=== PATIENT | male | born 1935 | race Caucasian/White ===

== ENCOUNTER 2020-07-28 17:50 | Inpatient (IN) | payer MEDICARE, MEDICAID, SELFPAY ==
[~2020-07-28] VITALS: Ht 152.4 cm; Wt 56.8 kg
[2020-07-28 17:55] VITALS: BP_SYST 137
[2020-07-28] MEDS ORDERED: ALBUTEROL SULFATE 0.083% 2.5 MG/3 ML VIAL.NEB INH ONE (18:00)
[2020-07-28] MEDS ORDERED: MAGNESIUM SULFATE 50 ML IV ONE (18:00)
[2020-07-28] MEDS ORDERED: levoFLOXacin 500 MG TABLET PO ONE (18:00)
[2020-07-28 19:24] LABS: BASOPHILS % (AUTO) 0.3 % (0.0-2.0); EOSINOPHILS % (AUTO) 0.3 % (0.0-4.0); HEMATOCRIT 23.5 % (36-54); HEMOGLOBIN 7.8 g/dL (14.0-18.0); LYMPHOCYTES # (AUTO) 0.9 K/uL (1.0-5.5); LYMPHOCYTES % (AUTO) 7.7 % (20.5-51.5); MEAN CORPUSCULAR HEMOGLOBIN 29 pg (27-31); MEAN CORPUSCULAR HGB CONC 33 % (32-36); MEAN CORPUSCULAR VOLUME 86 fL (79.0-98.0); MONOCYTES # (AUTO) 0.8 K/uL (0.0-1.0); MONOCYTES % (AUTO) 6.5 % (1.7-9.3); NEUTROPHILS # (AUTO) 10.2 K/uL (1.8-7.7); NEUTROPHILS % (AUTO) 85.2 % (40.0-70.0); PLATELET COUNT (AUTO) 263 K/uL (130-430); RED BLOOD CELL COUNT(AUTO) 2.72 MIL/uL (4.2-6.2); RED CELL DISTRIBUTION WIDTH 16.3 % (9.0-15.0); WHITE BLOOD COUNT (AUTO) 11.9 K/uL (4.8-10.8)
[2020-07-28 19:27] LABS: PROTHROMBIN TIME 9.8 SECS (9.5-12.5)
[2020-07-28 19:30] LABS: ANION GAP 13 (5-15); CALCIUM 8.4 mg/dL (8.4-11.0); CHLORIDE 102 mmol/L (98-107); CREATININE 2.37 mg/dL (0.55-1.30); GLUCOSE 261 mg/dL (70-99); SODIUM SERUM 137 mmol/L (136-145); UREA NITROGEN, BLOOD 51 mg/dL (8-21)
[2020-07-28 19:31] LABS: ALANINE AMINOTRANSFERASE 37 U/L (12-78); ALBUMIN 3.3 g/dL (3.4-4.8); ASPARTATE AMINOTRANSFERASE 30 U/L (10-37); TOTAL BILIRUBIN 0.3 mg/dL (0.0-1.0)
[2020-07-28] MEDS ORDERED: ASPIRIN 81 MG TAB.CHEW PO ONE (21:00)
[2020-07-28] MEDS ORDERED: HYDR-4038 PO (22:57)
[2020-07-28] MEDS ORDERED: LIP40 PO (22:58)
[2020-07-28] MEDS ORDERED: ATEN-41 PO (23:00)
[2020-07-28] MEDS ORDERED: ASPI-1155 PO (23:01)
[2020-07-28] MEDS ORDERED: AMLO5TAB4 PO (23:01)
[2020-07-29] VITALS (22 sets, daily range): BP systolic 100–139
[2020-07-29] MEDS ORDERED: ASPIRIN 81 MG TAB.CHEW PO ONE (00:45)
[2020-07-29 02:19] LABS: BILIRUBIN,URINE NEGATIVE (NEGATIVE); BLOOD, URINE NEGATIVE (NEGATIVE); CLARITY/URINE CLEAR (CLEAR); COLOR,URINE YELLOW (YELLOW); GLUCOSE,URINE NEGATIVE (NEGATIVE); KETONES,URINE TRACE (NEGATIVE); LEUKOCYTE ESTERASE ,URINE NEGATIVE (NEGATIVE); NITRITE, URINE NEGATIVE (NEGATIVE); PROTEIN URINE 2+ (NEGATIVE); UROBILINOGEN,URINE 0.2 (0.2-1.0)
[2020-07-29 02:22] LABS: BACTERIA,URINE FEW /HPF (None Seen); RBC,URINE 0-3 /HPF (0-3); WBC,URINE 0-3 /HPF (0-3)
[2020-07-29] MEDS ORDERED: ALBUTEROL SULFATE 0.083% 2.5 MG/3 ML VIAL.NEB INH PRN (06:45)
[2020-07-29] MEDS ORDERED: ACETAMINOPHEN 325 MG TABLET PO PRN (06:45)
[2020-07-29] MEDS ORDERED: HYDROcodone/ACETAMIN 5-325 MG TAB (NORCO/ VICODIN) PO PRN (06:45)
[2020-07-29] MEDS ORDERED: HYDROcodone/ACETAMIN 10-325 MG TAB PO PRN (06:45)
[2020-07-29] MEDS ORDERED: LORazepam 2 MG/ML VIAL IVP PRN (06:45)
[2020-07-29] MEDS ORDERED: NALOXONE HCL 0.4 MG/ML AMP (NARCAN) IVP PRN ×2 (06:45)
[2020-07-29] MEDS ORDERED: ONDANSETRON HCL 4 MG/2 ML VIAL IVP PRN (06:45)
[2020-07-29] MEDS: IPRATROPIUM BROM 0.5 MG/2.5 ML VIAL.NEB (ATROVENT) INH SCH ×4 (07:00→23:00)
[2020-07-29] MEDS ORDERED: COMMUNICATION ORDER XX ONE ×2 (07:15→13:00)
[2020-07-29] MEDS ORDERED: HEPARIN SODIUM,PORCINE 5,000 UNITS/ML VIAL IVP ONE ×2 (07:30→07:45)
[2020-07-29] MEDS ORDERED: HEPARIN SODIUM,PORCINE 3000 UNITS/0.6 ML BOLUS IVP PRN (07:30)
[2020-07-29] MEDS ORDERED: HEPARIN SODIUM,PORCINE 2000 UNITS/0.4 ML BOLUS IVP PRN (07:30)
[2020-07-29] MEDS ORDERED: cefTRIAXone 1 GM IVPB PREMIX 50 ML IV SCH (08:00)
[2020-07-29] MEDS ORDERED: amLODIPine BESYLATE 5 MG TABLET PO SCH (09:00)
[2020-07-29] MEDS ORDERED: ATENOLOL 25 MG TABLET(TENORMIN) PO SCH (09:00)
[2020-07-29] MEDS ORDERED: hydrALAZINE HCL 25 MG TABLET PO SCH (09:00)
[2020-07-29] MEDS ORDERED: ASPIRIN 81 MG TAB.CHEW PO SCH (09:00)
[2020-07-29] MEDS: AZITHROMYCIN 500 MG in NS 250 ML IV SCH (09:05)
[2020-07-29] MEDS ORDERED: PROPOFOL DRIP 100 ML IV ONE (09:58)
[2020-07-29] MEDS ORDERED: FUROSEMIDE 40 MG/4 ML VIAL IVP ONE (10:00)
[2020-07-29] MEDS: PROPOFOL DRIP 100 ML IV PRN ×2 (11:39→18:27)
[2020-07-29] MEDS: HEPARIN 25,000 UNITS in 250 ML PREMIX IV PRN (12:49)
[2020-07-29] MEDS ORDERED: ACETAMINOPHEN 325 MG TABLET NG PRN (12:54)
[2020-07-29] MEDS ORDERED: HYDROcodone/ACETAMIN 5-325 MG TAB (NORCO/ VICODIN) NG PRN (13:01)
[2020-07-29] MEDS ORDERED: HYDROcodone/ACETAMIN 10-325 MG TAB NG PRN (13:01)
[2020-07-29] MEDS ORDERED: hydrALAZINE HCL 25 MG TABLET NG SCH (13:01)
[2020-07-29] MEDS: FUROSEMIDE 100 MG in D5W 90 ML IV SCH (13:36)
[2020-07-29] MEDS: PIPERACILLIN/TAZO 2.25G/DEX-IS 50 ML IV SCH ×2 (13:59→18:24)
[2020-07-29] MEDS ORDERED: ETOMIDATE 20 MG/ 10 ML VIAL (AMIDATE) ONE (14:34)
[2020-07-29] MEDS ORDERED: ROCURONIUM BROMIDE 10 MG/ML (ZEMURON) ONE (14:34)
[2020-07-29] MEDS ORDERED: BALSAM PERU/CASTOR OIL 60 GM OINT...G. TP ONE (17:00)
[2020-07-29] MEDS: ATORVASTATIN 20 MG TABLET NG SCH (20:14)
[2020-07-29] MEDS: amLODIPine BESYLATE 5 MG TABLET NG SCH (20:14)
[2020-07-29] MEDS: ATENOLOL 25 MG TABLET(TENORMIN) NG SCH (20:15)
[2020-07-29] MEDS: hydrALAZINE HCL 25 MG TABLET NG SCH (20:30)
[2020-07-30] VITALS (35 sets, daily range): BP systolic 90–128
[2020-07-30] MEDS: PIPERACILLIN/TAZO 2.25G/DEX-IS 50 ML IV SCH ×4 (00:24→17:59)
[2020-07-30] MEDS: PROPOFOL DRIP 100 ML IV PRN ×4 (04:14→20:56)
[2020-07-30] MEDS: HEPARIN 25,000 UNITS in 250 ML PREMIX IV PRN (04:21)
[2020-07-30] MEDS ORDERED: FUROSEMIDE 20 MG/2 ML VIAL ONE ×2 (04:25→04:27)
[2020-07-30] MEDS ORDERED: FUROSEMIDE 40 MG/4 ML VIAL ONE (04:34)
[2020-07-30] MEDS: FUROSEMIDE 100 MG in D5W 90 ML IV SCH ×2 (05:00→17:08)
[2020-07-30] MEDS: hydrALAZINE HCL 25 MG TABLET NG SCH ×3 (06:00→22:00)
[2020-07-30 06:15] LABS: BASOPHILS % (AUTO) 0.1 % (0.0-2.0); EOSINOPHILS % (AUTO) 0.1 % (0.0-4.0); LYMPHOCYTES # (AUTO) 0.9 K/uL (1.0-5.5); LYMPHOCYTES % (AUTO) 6.6 % (20.5-51.5); MEAN CORPUSCULAR HEMOGLOBIN 28 pg (27-31); MEAN CORPUSCULAR HGB CONC 33 % (32-36); MEAN CORPUSCULAR VOLUME 85 fL (79.0-98.0); MONOCYTES # (AUTO) 1.3 K/uL (0.0-1.0); MONOCYTES % (AUTO) 9.8 % (1.7-9.3); NEUTROPHILS # (AUTO) 11.1 K/uL (1.8-7.7); NEUTROPHILS % (AUTO) 83.4 % (40.0-70.0); PLATELET COUNT (AUTO) 198 K/uL (130-430); RED BLOOD CELL COUNT(AUTO) 2.37 MIL/uL (4.2-6.2); RED CELL DISTRIBUTION WIDTH 16.2 % (9.0-15.0); WHITE BLOOD COUNT (AUTO) 13.3 K/uL (4.8-10.8)
[2020-07-30 06:31] LABS: C-REACTIVE PROTEIN QUANT 27.1 mg/dL (0-0.5)
[2020-07-30 06:34] LABS: ALANINE AMINOTRANSFERASE 26 U/L (12-78); ALBUMIN 2.2 g/dL (3.4-4.8); ANION GAP 11 (5-15); ASPARTATE AMINOTRANSFERASE 37 U/L (10-37); CALCIUM 8.1 mg/dL (8.4-11.0); CHLORIDE 105 mmol/L (98-107); CREATININE 2.91 mg/dL (0.55-1.30); GLUCOSE 186 mg/dL (70-99); POTASSIUM 4.3 mmol/L (3.5-5.1); SODIUM SERUM 140 mmol/L (136-145); TOTAL BILIRUBIN 0.3 mg/dL (0.0-1.0); UREA NITROGEN, BLOOD 66 mg/dL (8-21)
[2020-07-30 07:10] LABS: HEMATOCRIT 20.1 % (36-54); HEMOGLOBIN 6.6 g/dL (14.0-18.0)
[2020-07-30] MEDS: IPRATROPIUM BROM 0.5 MG/2.5 ML VIAL.NEB (ATROVENT) INH SCH ×4 (07:16→20:57)
[2020-07-30 08:22] LABS: ERYTHROCYTE SEDIMENTATION RATE 124 MM/HR (0-15)
[2020-07-30] MEDS: ASPIRIN 81 MG TAB.CHEW NG SCH (10:23)
[2020-07-30] MEDS: amLODIPine BESYLATE 5 MG TABLET NG SCH ×2 (10:23→20:12)
[2020-07-30] MEDS: AZITHROMYCIN 500 MG in NS 250 ML IV SCH (10:23)
[2020-07-30] MEDS: ATENOLOL 25 MG TABLET(TENORMIN) NG SCH ×2 (10:23→20:12)
[2020-07-30] MEDS: BALSAM PERU/CASTOR OIL 60 GM OINT...G. TP SCH (10:25)
[2020-07-30] MEDS: ATORVASTATIN 20 MG TABLET NG SCH (20:11)
[2020-07-31] VITALS (36 sets, daily range): BP systolic 98–136
[2020-07-31] MEDS: IPRATROPIUM BROM 0.5 MG/2.5 ML VIAL.NEB (ATROVENT) INH SCH ×7 (00:18→23:42)
[2020-07-31] MEDS: PIPERACILLIN/TAZO 2.25G/DEX-IS 50 ML IV SCH ×4 (00:51→18:55)
[2020-07-31] MEDS: PROPOFOL DRIP 100 ML IV PRN ×4 (00:52→21:11)
[2020-07-31] MEDS: FUROSEMIDE 100 MG in D5W 90 ML IV SCH ×2 (01:17→16:24)
[2020-07-31] MEDS: hydrALAZINE HCL 25 MG TABLET NG SCH ×3 (06:00→21:47)
[2020-07-31 06:52] LABS: BASOPHILS % (AUTO) 0.3 % (0.0-2.0); EOSINOPHILS # (AUTO) 0.2 K/uL (0.0-0.4); EOSINOPHILS % (AUTO) 1.3 % (0.0-4.0); HEMATOCRIT 24.8 % (36-54); HEMOGLOBIN 8.2 g/dL (14.0-18.0); LYMPHOCYTES # (AUTO) 0.9 K/uL (1.0-5.5); LYMPHOCYTES % (AUTO) 7.2 % (20.5-51.5); MEAN CORPUSCULAR HEMOGLOBIN 28 pg (27-31); MEAN CORPUSCULAR HGB CONC 33 % (32-36); MEAN CORPUSCULAR VOLUME 85 fL (79.0-98.0); MONOCYTES # (AUTO) 1.1 K/uL (0.0-1.0); MONOCYTES % (AUTO) 8.7 % (1.7-9.3); NEUTROPHILS # (AUTO) 10.8 K/uL (1.8-7.7); NEUTROPHILS % (AUTO) 82.5 % (40.0-70.0); PLATELET COUNT (AUTO) 207 K/uL (130-430); RED BLOOD CELL COUNT(AUTO) 2.93 MIL/uL (4.2-6.2); RED CELL DISTRIBUTION WIDTH 15.5 % (9.0-15.0)
[2020-07-31 07:44] LABS: ALANINE AMINOTRANSFERASE 36 U/L (12-78); ALBUMIN 2.1 g/dL (3.4-4.8); ANION GAP 13 (5-15); ASPARTATE AMINOTRANSFERASE 44 U/L (10-37); CALCIUM 8.3 mg/dL (8.4-11.0); CHLORIDE 102 mmol/L (98-107); CREATININE 3.45 mg/dL (0.55-1.30); GLUCOSE 191 mg/dL (70-99); PHOSPHORUS 7.2 mg/dL (2.7-4.5); POTASSIUM 3.2 mmol/L (3.5-5.1); SODIUM SERUM 139 mmol/L (136-145); TOTAL BILIRUBIN 0.6 mg/dL (0.0-1.0); UREA NITROGEN, BLOOD 75 mg/dL (8-21)
[2020-07-31 07:58] LABS: ERYTHROCYTE SEDIMENTATION RATE 117 MM/HR (0-15)
[2020-07-31] MEDS: amLODIPine BESYLATE 5 MG TABLET NG SCH ×2 (08:05→21:12)
[2020-07-31] MEDS: ATENOLOL 25 MG TABLET(TENORMIN) NG SCH ×2 (08:06→21:11)
[2020-07-31] MEDS: ASPIRIN 81 MG TAB.CHEW NG SCH (08:06)
[2020-07-31] MEDS: BALSAM PERU/CASTOR OIL 60 GM OINT...G. TP SCH (08:07)
[2020-07-31] MEDS: AZITHROMYCIN 500 MG in NS 250 ML IV SCH (08:09)
[2020-07-31] MEDS: HEPARIN 25,000 UNITS in 250 ML PREMIX IV PRN (10:13)
[2020-07-31 10:35] LABS: C-REACTIVE PROTEIN QUANT 46.2 mg/dL (0-0.5)
[2020-07-31] MEDS ORDERED: KCL 20 mEq in 100 mL (PREMIX) 100 ML IV ONE (14:15)
[2020-07-31] MEDS: ATORVASTATIN 20 MG TABLET NG SCH (21:11)
[2020-08-01] VITALS (32 sets, daily range): BP systolic 105–145
[2020-08-01] MEDS: PROPOFOL DRIP 100 ML IV PRN ×2 (01:00→08:59)
[2020-08-01] MEDS: PIPERACILLIN/TAZO 2.25G/DEX-IS 50 ML IV SCH ×4 (01:08→18:54)
[2020-08-01] MEDS: IPRATROPIUM BROM 0.5 MG/2.5 ML VIAL.NEB (ATROVENT) INH SCH ×6 (03:42→23:41)
[2020-08-01] MEDS: hydrALAZINE HCL 25 MG TABLET NG SCH ×2 (05:24→18:54)
[2020-08-01 07:16] LABS: BASOPHILS % (AUTO) 0.2 % (0.0-2.0); EOSINOPHILS # (AUTO) 0.4 K/uL (0.0-0.4); EOSINOPHILS % (AUTO) 3.6 % (0.0-4.0); HEMATOCRIT 26.3 % (36-54); HEMOGLOBIN 8.9 g/dL (14.0-18.0); LYMPHOCYTES # (AUTO) 0.9 K/uL (1.0-5.5); MEAN CORPUSCULAR HEMOGLOBIN 28 pg (27-31); MEAN CORPUSCULAR HGB CONC 34 % (32-36); MEAN CORPUSCULAR VOLUME 84 fL (79.0-98.0); MONOCYTES % (AUTO) 8.9 % (1.7-9.3); NEUTROPHILS % (AUTO) 79.3 % (40.0-70.0); PLATELET COUNT (AUTO) 247 K/uL (130-430); RED BLOOD CELL COUNT(AUTO) 3.14 MIL/uL (4.2-6.2); RED CELL DISTRIBUTION WIDTH 15.7 % (9.0-15.0); WHITE BLOOD COUNT (AUTO) 11.4 K/uL (4.8-10.8)
[2020-08-01 07:56] LABS: ANION GAP 13 (5-15); CALCIUM 8.3 mg/dL (8.4-11.0); CHLORIDE 99 mmol/L (98-107); CREATININE 3.08 mg/dL (0.55-1.30); GLUCOSE 186 mg/dL (70-99); PHOSPHORUS 5.7 mg/dL (2.7-4.5); SODIUM SERUM 139 mmol/L (136-145); UREA NITROGEN, BLOOD 69 mg/dL (8-21)
[2020-08-01 08:55] LABS: ERYTHROCYTE SEDIMENTATION RATE 121 MM/HR (0-15)
[2020-08-01] MEDS: AZITHROMYCIN 500 MG in NS 250 ML IV SCH (08:59)
[2020-08-01] MEDS: HEPARIN 25,000 UNITS in 250 ML PREMIX IV PRN (09:04)
[2020-08-01] MEDS: ATENOLOL 25 MG TABLET(TENORMIN) NG SCH ×2 (09:04→23:51)
[2020-08-01] MEDS: amLODIPine BESYLATE 5 MG TABLET NG SCH ×2 (09:05→20:17)
[2020-08-01] MEDS: ASPIRIN 81 MG TAB.CHEW NG SCH (09:05)
[2020-08-01 09:19] LABS: POTASSIUM 2.9 mmol/L (3.5-5.1)
[2020-08-01 11:36] LABS: C-REACTIVE PROTEIN QUANT 35.8 mg/dL (0-0.5)
[2020-08-01] MEDS ORDERED: KCL 40 mEq in 100 mL (PREMIX) 100 ML IV ONE (12:45)
[2020-08-01] MEDS ORDERED: POTASSIUM CHLORIDE 20 MEQ/PKT PACKET PO ONE (12:45)
[2020-08-01] MEDS: FUROSEMIDE 100 MG in D5W 90 ML IV SCH (17:37)
[2020-08-01] MEDS: BALSAM PERU/CASTOR OIL 60 GM OINT...G. TP SCH (18:57)
[2020-08-01] MEDS: ATORVASTATIN 20 MG TABLET NG SCH (20:17)
[2020-08-02] VITALS (28 sets, daily range): BP systolic 103–130
[2020-08-02] MEDS ORDERED: MEROPENEM 500 MG VIAL IV ONE (00:42)
[2020-08-02] MEDS: MEROPENEM 500 MG in NS 50 ML IV SCH ×3 (00:44→21:14)
[2020-08-02] MEDS: hydrALAZINE HCL 25 MG TABLET NG SCH ×4 (00:47→21:11)
[2020-08-02] MEDS: PROPOFOL DRIP 100 ML IV PRN ×3 (02:15→23:03)
[2020-08-02] MEDS: IPRATROPIUM BROM 0.5 MG/2.5 ML VIAL.NEB (ATROVENT) INH SCH ×6 (04:08→23:25)
[2020-08-02] MEDS: HEPARIN 25,000 UNITS in 250 ML PREMIX IV PRN (05:44)
[2020-08-02 07:08] LABS: BASOPHILS % (AUTO) 0.2 % (0.0-2.0); EOSINOPHILS # (AUTO) 0.3 K/uL (0.0-0.4); EOSINOPHILS % (AUTO) 2.3 % (0.0-4.0); HEMATOCRIT 26.9 % (36-54); HEMOGLOBIN 9.2 g/dL (14.0-18.0); LYMPHOCYTES % (AUTO) 9.5 % (20.5-51.5); MEAN CORPUSCULAR HEMOGLOBIN 29 pg (27-31); MEAN CORPUSCULAR HGB CONC 34 % (32-36); MEAN CORPUSCULAR VOLUME 84 fL (79.0-98.0); MONOCYTES % (AUTO) 9.4 % (1.7-9.3); NEUTROPHILS # (AUTO) 8.6 K/uL (1.8-7.7); NEUTROPHILS % (AUTO) 78.6 % (40.0-70.0); PLATELET COUNT (AUTO) 257 K/uL (130-430)
[2020-08-02 07:37] LABS: ALANINE AMINOTRANSFERASE 40 U/L (12-78); ALBUMIN 2.2 g/dL (3.4-4.8); ANION GAP 14 (5-15); ASPARTATE AMINOTRANSFERASE 29 U/L (10-37); CALCIUM 8.8 mg/dL (8.4-11.0); CHLORIDE 102 mmol/L (98-107); CREATININE 3.01 mg/dL (0.55-1.30); GLUCOSE 261 mg/dL (70-99); PHOSPHORUS 4.3 mg/dL (2.7-4.5); SODIUM SERUM 142 mmol/L (136-145); TOTAL BILIRUBIN 0.3 mg/dL (0.0-1.0); UREA NITROGEN, BLOOD 78 mg/dL (8-21)
[2020-08-02] MEDS: ASPIRIN 81 MG TAB.CHEW NG SCH (08:20)
[2020-08-02] MEDS: AZITHROMYCIN 500 MG in NS 250 ML IV SCH (08:20)
[2020-08-02] MEDS: ATENOLOL 25 MG TABLET(TENORMIN) NG SCH ×2 (08:21→21:12)
[2020-08-02] MEDS: BALSAM PERU/CASTOR OIL 60 GM OINT...G. TP SCH (08:21)
[2020-08-02] MEDS: amLODIPine BESYLATE 5 MG TABLET NG SCH ×2 (08:22→21:11)
[2020-08-02 09:19] LABS: C-REACTIVE PROTEIN QUANT 33.7 mg/dL (0-0.5)
[2020-08-02] MEDS: FUROSEMIDE 100 MG in D5W 90 ML IV SCH (10:30)
[2020-08-02 11:00] LABS: ERYTHROCYTE SEDIMENTATION RATE 114 MM/HR (0-15)
[2020-08-02] MEDS ORDERED: KCL 20 mEq in 100 mL (PREMIX) 100 ML IV ONE ×2 (13:30→16:03)
[2020-08-02] MEDS: ATORVASTATIN 20 MG TABLET NG SCH (21:12)
[2020-08-03] VITALS (29 sets, daily range): BP systolic 101–132
[2020-08-03] MEDS: IPRATROPIUM BROM 0.5 MG/2.5 ML VIAL.NEB (ATROVENT) INH SCH ×3 (03:53→13:09)
[2020-08-03 06:05] LABS: BASOPHILS % (AUTO) 0.3 % (0.0-2.0); EOSINOPHILS # (AUTO) 0.4 K/uL (0.0-0.4); EOSINOPHILS % (AUTO) 4.5 % (0.0-4.0); HEMATOCRIT 27.6 % (36-54); HEMOGLOBIN 9.3 g/dL (14.0-18.0); MEAN CORPUSCULAR HEMOGLOBIN 28 pg (27-31); MEAN CORPUSCULAR HGB CONC 34 % (32-36); MEAN CORPUSCULAR VOLUME 84 fL (79.0-98.0); MONOCYTES # (AUTO) 1.2 K/uL (0.0-1.0); MONOCYTES % (AUTO) 12.2 % (1.7-9.3); NEUTROPHILS # (AUTO) 7.1 K/uL (1.8-7.7); PLATELET COUNT (AUTO) 239 K/uL (130-430); RED BLOOD CELL COUNT(AUTO) 3.27 MIL/uL (4.2-6.2); RED CELL DISTRIBUTION WIDTH 15.8 % (9.0-15.0); WHITE BLOOD COUNT (AUTO) 9.7 K/uL (4.8-10.8)
[2020-08-03] MEDS: HEPARIN 25,000 UNITS in 250 ML PREMIX IV PRN (06:05)
[2020-08-03] MEDS: FUROSEMIDE 100 MG in D5W 90 ML IV SCH (06:06)
[2020-08-03] MEDS: hydrALAZINE HCL 25 MG TABLET NG SCH ×3 (06:07→22:24)
[2020-08-03] MEDS: PROPOFOL DRIP 100 ML IV PRN ×3 (06:16→22:29)
[2020-08-03 06:42] LABS: ANION GAP 14 (5-15); CALCIUM 8.5 mg/dL (8.4-11.0); CHLORIDE 103 mmol/L (98-107); CREATININE 2.94 mg/dL (0.55-1.30); GLUCOSE 319 mg/dL (70-99); PHOSPHORUS 4.7 mg/dL (2.7-4.5); SODIUM SERUM 142 mmol/L (136-145); UREA NITROGEN, BLOOD 87 mg/dL (8-21)
[2020-08-03 08:47] LABS: ERYTHROCYTE SEDIMENTATION RATE 124 MM/HR (0-15)
[2020-08-03] MEDS: amLODIPine BESYLATE 5 MG TABLET NG SCH ×2 (09:00→22:23)
[2020-08-03] MEDS: ATENOLOL 25 MG TABLET(TENORMIN) NG SCH ×2 (09:00→22:24)
[2020-08-03] MEDS: ASPIRIN 81 MG TAB.CHEW NG SCH (09:05)
[2020-08-03] MEDS: MEROPENEM 500 MG in NS 50 ML IV SCH ×2 (09:05→22:22)
[2020-08-03] MEDS: BALSAM PERU/CASTOR OIL 60 GM OINT...G. TP SCH (09:06)
[2020-08-03 10:01] LABS: C-REACTIVE PROTEIN QUANT 22.4 mg/dL (0-0.5)
[2020-08-03] MEDS ORDERED: KCL 40 mEq in 100 mL (PREMIX) 100 ML IV ONE ×2 (11:45→12:58)
[2020-08-03] MEDS ORDERED: POTASSIUM CHLORIDE 20 MEQ/PKT PACKET PO ONE (11:45)
[2020-08-03] MEDS: ATORVASTATIN 20 MG TABLET NG SCH (22:23)
[2020-08-04] VITALS (28 sets, daily range): BP systolic 98–186
[2020-08-04] MEDS: hydrALAZINE HCL 25 MG TABLET NG SCH ×3 (05:49→21:23)
[2020-08-04 07:05] LABS: BASOPHILS # (AUTO) 0.1 K/uL (0.0-0.2); BASOPHILS % (AUTO) 0.6 % (0.0-2.0); EOSINOPHILS # (AUTO) 0.6 K/uL (0.0-0.4); EOSINOPHILS % (AUTO) 5.3 % (0.0-4.0); HEMATOCRIT 30.5 % (36-54); LYMPHOCYTES # (AUTO) 1.5 K/uL (1.0-5.5); LYMPHOCYTES % (AUTO) 13.7 % (20.5-51.5); MEAN CORPUSCULAR HEMOGLOBIN 28 pg (27-31); MEAN CORPUSCULAR HGB CONC 33 % (32-36); MEAN CORPUSCULAR VOLUME 85 fL (79.0-98.0); MONOCYTES # (AUTO) 1.2 K/uL (0.0-1.0); NEUTROPHILS # (AUTO) 7.3 K/uL (1.8-7.7); NEUTROPHILS % (AUTO) 69.4 % (40.0-70.0); PLATELET COUNT (AUTO) 274 K/uL (130-430); RED BLOOD CELL COUNT(AUTO) 3.57 MIL/uL (4.2-6.2); RED CELL DISTRIBUTION WIDTH 15.9 % (9.0-15.0); WHITE BLOOD COUNT (AUTO) 10.6 K/uL (4.8-10.8)
[2020-08-04] MEDS: IPRATROPIUM BROM 0.5 MG/2.5 ML VIAL.NEB (ATROVENT) INH SCH ×5 (07:24→23:00)
[2020-08-04 07:49] LABS: ALANINE AMINOTRANSFERASE 66 U/L (12-78); ALBUMIN 2.3 g/dL (3.4-4.8); ANION GAP 11 (5-15); ASPARTATE AMINOTRANSFERASE 48 U/L (10-37); CHLORIDE 104 mmol/L (98-107); CREATININE 3.12 mg/dL (0.55-1.30); GLUCOSE 360 mg/dL (70-99); PHOSPHORUS 5.1 mg/dL (2.7-4.5); POTASSIUM 3.5 mmol/L (3.5-5.1); SODIUM SERUM 141 mmol/L (136-145); TOTAL BILIRUBIN 0.3 mg/dL (0.0-1.0); UREA NITROGEN, BLOOD 97 mg/dL (8-21)
[2020-08-04 08:35] LABS: ERYTHROCYTE SEDIMENTATION RATE 111 MM/HR (0-15)
[2020-08-04] MEDS: FUROSEMIDE 100 MG in D5W 90 ML IV SCH (10:30)
[2020-08-04] MEDS: amLODIPine BESYLATE 5 MG TABLET NG SCH ×2 (11:02→21:24)
[2020-08-04] MEDS: ATENOLOL 25 MG TABLET(TENORMIN) NG SCH ×2 (11:02→21:23)
[2020-08-04] MEDS: ASPIRIN 81 MG TAB.CHEW NG SCH (11:03)
[2020-08-04] MEDS: MEROPENEM 500 MG in NS 50 ML IV SCH ×2 (11:32→21:21)
[2020-08-04] MEDS: BALSAM PERU/CASTOR OIL 60 GM OINT...G. TP SCH (11:33)
[2020-08-04 11:46] LABS: C-REACTIVE PROTEIN QUANT 17.5 mg/dL (0-0.5)
[2020-08-04] MEDS: ATORVASTATIN 20 MG TABLET NG SCH (21:22)
[2020-08-05] VITALS (23 sets, daily range): BP systolic 100–143
[2020-08-05] MEDS: IPRATROPIUM BROM 0.5 MG/2.5 ML VIAL.NEB (ATROVENT) INH SCH ×6 (03:47→23:42)
[2020-08-05] MEDS: hydrALAZINE HCL 25 MG TABLET NG SCH ×3 (05:53→22:00)
[2020-08-05 06:34] LABS: BASOPHILS # (AUTO) 0.1 K/uL (0.0-0.2); BASOPHILS % (AUTO) 0.6 % (0.0-2.0); EOSINOPHILS # (AUTO) 0.6 K/uL (0.0-0.4); EOSINOPHILS % (AUTO) 4.7 % (0.0-4.0); HEMATOCRIT 31.7 % (36-54); HEMOGLOBIN 10.3 g/dL (14.0-18.0); LYMPHOCYTES # (AUTO) 1.2 K/uL (1.0-5.5); LYMPHOCYTES % (AUTO) 9.3 % (20.5-51.5); MEAN CORPUSCULAR HEMOGLOBIN 28 pg (27-31); MEAN CORPUSCULAR HGB CONC 33 % (32-36); MEAN CORPUSCULAR VOLUME 85 fL (79.0-98.0); MONOCYTES # (AUTO) 1.3 K/uL (0.0-1.0); MONOCYTES % (AUTO) 10.2 % (1.7-9.3); NEUTROPHILS # (AUTO) 9.8 K/uL (1.8-7.7); NEUTROPHILS % (AUTO) 75.2 % (40.0-70.0); PLATELET COUNT (AUTO) 339 K/uL (130-430); RED BLOOD CELL COUNT(AUTO) 3.71 MIL/uL (4.2-6.2); RED CELL DISTRIBUTION WIDTH 16.1 % (9.0-15.0); WHITE BLOOD COUNT (AUTO) 13.1 K/uL (4.8-10.8)
[2020-08-05 06:54] LABS: ALANINE AMINOTRANSFERASE 56 U/L (12-78); ALBUMIN 2.4 g/dL (3.4-4.8); ANION GAP 13 (5-15); ASPARTATE AMINOTRANSFERASE 24 U/L (10-37); CALCIUM 9.4 mg/dL (8.4-11.0); CHLORIDE 107 mmol/L (98-107); CREATININE 2.72 mg/dL (0.55-1.30); PHOSPHORUS 6.3 mg/dL (2.7-4.5); POTASSIUM 3.5 mmol/L (3.5-5.1); SODIUM SERUM 145 mmol/L (136-145); TOTAL BILIRUBIN 0.2 mg/dL (0.0-1.0)
[2020-08-05 07:26] LABS: GLUCOSE 435 mg/dL (70-99); UREA NITROGEN, BLOOD 107 mg/dL (8-21)
[2020-08-05] MEDS ORDERED: INSULIN REGULAR, HUMAN 100 UNITS/ML, 10 ML VIAL SUBCUT ONE (08:15)
[2020-08-05 08:22] LABS: C-REACTIVE PROTEIN QUANT 15.3 mg/dL (0-0.5)
[2020-08-05] MEDS ORDERED: FUROSEMIDE 40 MG/4 ML VIAL IVP SCH (09:00)
[2020-08-05 10:54] LABS: ERYTHROCYTE SEDIMENTATION RATE 108 MM/HR (0-15)
[2020-08-05] MEDS: ATENOLOL 25 MG TABLET(TENORMIN) NG SCH ×2 (11:29→20:25)
[2020-08-05] MEDS: ASPIRIN 81 MG TAB.CHEW NG SCH (11:29)
[2020-08-05] MEDS: amLODIPine BESYLATE 5 MG TABLET NG SCH ×2 (11:30→20:24)
[2020-08-05] MEDS ORDERED: FUROSEMIDE 40 MG/4 ML VIAL IVP ONE (11:30)
[2020-08-05] MEDS: MEROPENEM 500 MG in NS 50 ML IV SCH ×2 (11:31→20:28)
[2020-08-05] MEDS: BALSAM PERU/CASTOR OIL 60 GM OINT...G. TP SCH (11:31)
[2020-08-05] MEDS: ENOXAPARIN SODIUM 40 MG/0.4 ML SYRINGE SUBCUT SCH (11:33)
[2020-08-05] MEDS: INSULIN REGULAR, HUMAN 100 UNITS/ML, 10 ML VIAL (humuLIN R) SUBCUT PRN ×2 (12:24→17:23)
[2020-08-05] MEDS: D5/0.45 NS 1,000 ML IV SCH (13:38)
[2020-08-05] MEDS ORDERED: ALUMINUM HYDROXIDE 1920 mg/30 ML UDC PO ONE (15:00)
[2020-08-05] MEDS: ATORVASTATIN 20 MG TABLET NG SCH (20:24)
[2020-08-05] MEDS: ALUMINUM HYDROXIDE 1920 mg/30 ML UDC PO SCH (20:26)
[2020-08-06] MEDS: INSULIN REGULAR, HUMAN 100 UNITS/ML, 10 ML VIAL (humuLIN R) SUBCUT PRN ×4 (00:32→23:21)
[2020-08-06] MEDS: ALUMINUM HYDROXIDE 1920 mg/30 ML UDC PO SCH ×4 (03:00→21:00)
[2020-08-06 05:03] VITALS: BP_SYST 125
[2020-08-06] MEDS: hydrALAZINE HCL 25 MG TABLET NG SCH ×3 (06:00→21:16)
[2020-08-06] MEDS: IPRATROPIUM BROM 0.5 MG/2.5 ML VIAL.NEB (ATROVENT) INH SCH ×5 (07:49→23:59)
[2020-08-06 08:00] VITALS: BP_SYST 122
[2020-08-06 08:07] LABS: BASOPHILS % (AUTO) 0.4 % (0.0-2.0); EOSINOPHILS # (AUTO) 0.3 K/uL (0.0-0.4); EOSINOPHILS % (AUTO) 2.9 % (0.0-4.0); HEMATOCRIT 31.7 % (36-54); HEMOGLOBIN 10.5 g/dL (14.0-18.0); LYMPHOCYTES # (AUTO) 1.5 K/uL (1.0-5.5); LYMPHOCYTES % (AUTO) 12.9 % (20.5-51.5); MEAN CORPUSCULAR HEMOGLOBIN 28 pg (27-31); MEAN CORPUSCULAR HGB CONC 33 % (32-36); MEAN CORPUSCULAR VOLUME 85 fL (79.0-98.0); MONOCYTES # (AUTO) 1.3 K/uL (0.0-1.0); MONOCYTES % (AUTO) 11.1 % (1.7-9.3); NEUTROPHILS # (AUTO) 8.3 K/uL (1.8-7.7); NEUTROPHILS % (AUTO) 72.7 % (40.0-70.0); PLATELET COUNT (AUTO) 374 K/uL (130-430); RED BLOOD CELL COUNT(AUTO) 3.72 MIL/uL (4.2-6.2); RED CELL DISTRIBUTION WIDTH 15.9 % (9.0-15.0); WHITE BLOOD COUNT (AUTO) 11.4 K/uL (4.8-10.8)
[2020-08-06] MEDS ORDERED: FUROSEMIDE 40 MG/4 ML VIAL IVP SCH (09:00)
[2020-08-06] MEDS: ASPIRIN 81 MG TAB.CHEW NG SCH (09:00)
[2020-08-06] MEDS: amLODIPine BESYLATE 5 MG TABLET NG SCH ×2 (09:00→21:00)
[2020-08-06] MEDS: ATENOLOL 25 MG TABLET(TENORMIN) NG SCH ×2 (09:00→21:00)
[2020-08-06 09:34] LABS: ALANINE AMINOTRANSFERASE 44 U/L (12-78); ALBUMIN 2.4 g/dL (3.4-4.8); ANION GAP 15 (5-15); ASPARTATE AMINOTRANSFERASE 22 U/L (10-37); CALCIUM 9.8 mg/dL (8.4-11.0); CHLORIDE 110 mmol/L (98-107); CREATININE 2.41 mg/dL (0.55-1.30); GLUCOSE 241 mg/dL (70-99); PHOSPHORUS 4.9 mg/dL (2.7-4.5); POTASSIUM 3.7 mmol/L (3.5-5.1); SODIUM SERUM 148 mmol/L (136-145); TOTAL BILIRUBIN 0.2 mg/dL (0.0-1.0)
[2020-08-06] MEDS: MEROPENEM 500 MG in NS 50 ML IV SCH ×2 (09:39→21:15)
[2020-08-06] MEDS: BALSAM PERU/CASTOR OIL 60 GM OINT...G. TP SCH (09:51)
[2020-08-06] MEDS: D5/0.45 NS 1,000 ML IV SCH (09:51)
[2020-08-06 10:59] LABS: UREA NITROGEN, BLOOD 107 mg/dL (8-21)
[2020-08-06 12:00] VITALS: BP_SYST 130
[2020-08-06] MEDS: ENOXAPARIN SODIUM 40 MG/0.4 ML SYRINGE SUBCUT SCH (15:30)
[2020-08-06 16:00] VITALS: BP_SYST 142
[2020-08-06 20:00] VITALS: BP_SYST 122
[2020-08-06] MEDS: ATORVASTATIN 20 MG TABLET NG SCH (21:00)
[2020-08-07] MEDS: ALUMINUM HYDROXIDE 1920 mg/30 ML UDC PO SCH ×4 (03:00→21:00)
[2020-08-07] MEDS: IPRATROPIUM BROM 0.5 MG/2.5 ML VIAL.NEB (ATROVENT) INH SCH ×5 (03:00→20:54)
[2020-08-07] MEDS: hydrALAZINE HCL 25 MG TABLET NG SCH ×2 (04:59→14:00)
[2020-08-07] MEDS: D5/0.45 NS 1,000 ML IV SCH (04:59)
[2020-08-07] MEDS: INSULIN REGULAR, HUMAN 100 UNITS/ML, 10 ML VIAL (humuLIN R) SUBCUT PRN ×3 (06:00→17:27)
[2020-08-07 06:38] VITALS: BP_SYST 148
[2020-08-07 07:29] LABS: BASOPHILS # (AUTO) 0.1 K/uL (0.0-0.2); BASOPHILS % (AUTO) 0.4 % (0.0-2.0); EOSINOPHILS # (AUTO) 0.2 K/uL (0.0-0.4); HEMOGLOBIN 10.5 g/dL (14.0-18.0); LYMPHOCYTES # (AUTO) 1.2 K/uL (1.0-5.5); LYMPHOCYTES % (AUTO) 9.7 % (20.5-51.5); MEAN CORPUSCULAR HEMOGLOBIN 28 pg (27-31); MEAN CORPUSCULAR HGB CONC 33 % (32-36); MEAN CORPUSCULAR VOLUME 86 fL (79.0-98.0); MONOCYTES # (AUTO) 1.1 K/uL (0.0-1.0); NEUTROPHILS # (AUTO) 9.6 K/uL (1.8-7.7); NEUTROPHILS % (AUTO) 78.9 % (40.0-70.0); PLATELET COUNT (AUTO) 401 K/uL (130-430); RED BLOOD CELL COUNT(AUTO) 3.72 MIL/uL (4.2-6.2); WHITE BLOOD COUNT (AUTO) 12.2 K/uL (4.8-10.8)
[2020-08-07 07:33] LABS: ERYTHROCYTE SEDIMENTATION RATE 105 MM/HR (0-15)
[2020-08-07 08:00] VITALS: BP_SYST 154
[2020-08-07 08:07] LABS: ANION GAP 13 (5-15); CALCIUM 9.7 mg/dL (8.4-11.0); CHLORIDE 115 mmol/L (98-107); CREATININE 2.19 mg/dL (0.55-1.30); GLUCOSE 291 mg/dL (70-99); PHOSPHORUS 4.3 mg/dL (2.7-4.5); POTASSIUM 4.3 mmol/L (3.5-5.1); SODIUM SERUM 155 mmol/L (136-145); UREA NITROGEN, BLOOD 90 mg/dL (8-21)
[2020-08-07 08:07] LABS: C-REACTIVE PROTEIN QUANT 3.6 mg/dL (0-0.5)
[2020-08-07 08:50] LABS: C-REACTIVE PROTEIN QUANT 5.5 mg/dL (0-0.5)
[2020-08-07] MEDS: ASPIRIN 81 MG TAB.CHEW NG SCH (09:00)
[2020-08-07] MEDS: amLODIPine BESYLATE 5 MG TABLET NG SCH ×2 (09:00→21:00)
[2020-08-07] MEDS: ATENOLOL 25 MG TABLET(TENORMIN) NG SCH ×2 (09:00→21:00)
[2020-08-07 09:02] VITALS: BP_SYST 148
[2020-08-07] MEDS: BALSAM PERU/CASTOR OIL 60 GM OINT...G. TP SCH (10:01)
[2020-08-07] MEDS: MEROPENEM 500 MG in NS 50 ML IV SCH ×2 (10:01→22:59)
[2020-08-07] MEDS: ENOXAPARIN SODIUM 40 MG/0.4 ML SYRINGE SUBCUT SCH (10:10)
[2020-08-07 11:35] LABS: ERYTHROCYTE SEDIMENTATION RATE 110 MM/HR (0-15)
[2020-08-07 11:52] VITALS: BP_SYST 145
[2020-08-07] MEDS: D5W 1,000 ML IV SCH (15:50)
[2020-08-07 15:51] VITALS: BP_SYST 147
[2020-08-07] MEDS ORDERED: hydrALAZINE HCL 20 MG/ML VIAL IVP PRN (18:15)
[2020-08-07] MEDS: ATORVASTATIN 20 MG TABLET NG SCH (21:00)
[2020-08-07 23:04] VITALS: BP_SYST 155
[2020-08-08] MEDS: D5W 1,000 ML IV SCH ×2 (00:15→11:23)
[2020-08-08] MEDS: INSULIN REGULAR, HUMAN 100 UNITS/ML, 10 ML VIAL (humuLIN R) SUBCUT PRN ×4 (00:19→18:01)
[2020-08-08 00:48] VITALS: BP_SYST 155
[2020-08-08] MEDS: ALUMINUM HYDROXIDE 1920 mg/30 ML UDC PO SCH ×4 (03:00→21:00)
[2020-08-08 07:39] LABS: BASOPHILS % (AUTO) 0.4 % (0.0-2.0); EOSINOPHILS # (AUTO) 0.4 K/uL (0.0-0.4); EOSINOPHILS % (AUTO) 2.8 % (0.0-4.0); HEMATOCRIT 34.3 % (36-54); HEMOGLOBIN 11.1 g/dL (14.0-18.0); LYMPHOCYTES # (AUTO) 1.6 K/uL (1.0-5.5); LYMPHOCYTES % (AUTO) 12.4 % (20.5-51.5); MEAN CORPUSCULAR HEMOGLOBIN 28 pg (27-31); MEAN CORPUSCULAR HGB CONC 32 % (32-36); MEAN CORPUSCULAR VOLUME 86 fL (79.0-98.0); MONOCYTES # (AUTO) 0.9 K/uL (0.0-1.0); MONOCYTES % (AUTO) 7.1 % (1.7-9.3); NEUTROPHILS # (AUTO) 9.7 K/uL (1.8-7.7); NEUTROPHILS % (AUTO) 77.3 % (40.0-70.0); PLATELET COUNT (AUTO) 428 K/uL (130-430); RED BLOOD CELL COUNT(AUTO) 3.98 MIL/uL (4.2-6.2); WHITE BLOOD COUNT (AUTO) 12.5 K/uL (4.8-10.8)
[2020-08-08 08:00] VITALS: BP_SYST 159
[2020-08-08] MEDS: IPRATROPIUM BROM 0.5 MG/2.5 ML VIAL.NEB (ATROVENT) INH SCH ×5 (08:34→23:00)
[2020-08-08 08:45] LABS: PROTHROMBIN TIME 10.2 SECS (9.5-12.5)
[2020-08-08] MEDS: amLODIPine BESYLATE 5 MG TABLET NG SCH ×2 (09:00→21:00)
[2020-08-08] MEDS: ASPIRIN 81 MG TAB.CHEW NG SCH (09:00)
[2020-08-08] MEDS: BALSAM PERU/CASTOR OIL 60 GM OINT...G. TP SCH (09:00)
[2020-08-08] MEDS: ATENOLOL 25 MG TABLET(TENORMIN) NG SCH ×2 (09:00→21:00)
[2020-08-08 09:12] LABS: ANION GAP 13 (5-15); CALCIUM 9.2 mg/dL (8.4-11.0); CHLORIDE 114 mmol/L (98-107); CREATININE 1.76 mg/dL (0.55-1.30); GLUCOSE 268 mg/dL (70-99); PHOSPHORUS 3.4 mg/dL (2.7-4.5); POTASSIUM 3.2 mmol/L (3.5-5.1); SODIUM SERUM 154 mmol/L (136-145); UREA NITROGEN, BLOOD 60 mg/dL (8-21)
[2020-08-08] MEDS ORDERED: CEFAZOLIN 1 GM IVPB PREMIX 50 ML IV ONE (11:15)
[2020-08-08] MEDS: ENOXAPARIN SODIUM 40 MG/0.4 ML SYRINGE SUBCUT SCH (11:24)
[2020-08-08 12:16] VITALS: BP_SYST 144
[2020-08-08] MEDS ORDERED: POTASSIUM CHLORIDE 20 MEQ TAB.PRT.SR PO ONE (14:15)
[2020-08-08] MEDS ORDERED: POTASSIUM CHLORIDE 40 MEQ in NS 250 ML IV ONE (15:00)
[2020-08-08 16:15] VITALS: BP_SYST 152
[2020-08-08] MEDS: ATORVASTATIN 20 MG TABLET NG SCH (21:00)
[2020-08-09] VITALS: BP_SYST 154
[2020-08-09] MEDS: D5W 1,000 ML IV SCH ×4 (02:58→18:10)
[2020-08-09] MEDS: ALUMINUM HYDROXIDE 1920 mg/30 ML UDC PO SCH ×4 (03:00→22:30)
[2020-08-09] MEDS: IPRATROPIUM BROM 0.5 MG/2.5 ML VIAL.NEB (ATROVENT) INH SCH ×6 (03:00→23:04)
[2020-08-09 06:56] LABS: BASOPHILS # (AUTO) 0.1 K/uL (0.0-0.2); BASOPHILS % (AUTO) 0.6 % (0.0-2.0); EOSINOPHILS # (AUTO) 0.3 K/uL (0.0-0.4); EOSINOPHILS % (AUTO) 2.7 % (0.0-4.0); HEMATOCRIT 31.9 % (36-54); HEMOGLOBIN 10.5 g/dL (14.0-18.0); LYMPHOCYTES # (AUTO) 1.5 K/uL (1.0-5.5); LYMPHOCYTES % (AUTO) 14.4 % (20.5-51.5); MEAN CORPUSCULAR HEMOGLOBIN 28 pg (27-31); MEAN CORPUSCULAR HGB CONC 33 % (32-36); MEAN CORPUSCULAR VOLUME 86 fL (79.0-98.0); MONOCYTES # (AUTO) 0.8 K/uL (0.0-1.0); MONOCYTES % (AUTO) 7.7 % (1.7-9.3); NEUTROPHILS # (AUTO) 7.8 K/uL (1.8-7.7); NEUTROPHILS % (AUTO) 74.6 % (40.0-70.0); PLATELET COUNT (AUTO) 394 K/uL (130-430); RED BLOOD CELL COUNT(AUTO) 3.71 MIL/uL (4.2-6.2); RED CELL DISTRIBUTION WIDTH 15.7 % (9.0-15.0); WHITE BLOOD COUNT (AUTO) 10.4 K/uL (4.8-10.8)
[2020-08-09 08:00] VITALS: BP_SYST 154
[2020-08-09 08:11] LABS: PROTHROMBIN TIME 10.4 SECS (9.5-12.5)
[2020-08-09 08:15] LABS: ALANINE AMINOTRANSFERASE 31 U/L (12-78); ALBUMIN 2.4 g/dL (3.4-4.8); ANION GAP 11 (5-15); ASPARTATE AMINOTRANSFERASE 22 U/L (10-37); CALCIUM 8.8 mg/dL (8.4-11.0); CHLORIDE 116 mmol/L (98-107); CREATININE 1.63 mg/dL (0.55-1.30); GLUCOSE 209 mg/dL (70-99); PHOSPHORUS 3.1 mg/dL (2.7-4.5); POTASSIUM 3.6 mmol/L (3.5-5.1); SODIUM SERUM 152 mmol/L (136-145); TOTAL BILIRUBIN 0.2 mg/dL (0.0-1.0); UREA NITROGEN, BLOOD 48 mg/dL (8-21)
[2020-08-09 08:29] LABS: ERYTHROCYTE SEDIMENTATION RATE 97 MM/HR (0-15)
[2020-08-09] MEDS: ENOXAPARIN SODIUM 40 MG/0.4 ML SYRINGE SUBCUT SCH (09:00)
[2020-08-09] MEDS: MEROPENEM 500 MG in NS 50 ML IV SCH ×2 (09:29→22:37)
[2020-08-09] MEDS: ASPIRIN 81 MG TAB.CHEW NG SCH (09:29)
[2020-08-09] MEDS: ATENOLOL 25 MG TABLET(TENORMIN) NG SCH ×2 (09:30→22:36)
[2020-08-09] MEDS: amLODIPine BESYLATE 5 MG TABLET NG SCH ×2 (09:31→22:36)
[2020-08-09] MEDS: BALSAM PERU/CASTOR OIL 60 GM OINT...G. TP SCH (09:33)
[2020-08-09] MEDS ORDERED: fentaNYL CITRATE/PF 100 MCG/2 ML AMP ONE (11:11)
[2020-08-09] MEDS ORDERED: MIDAZOLAM HCL 5 MG/5 ML VIAL ONE (11:11)
[2020-08-09 11:54] LABS: C-REACTIVE PROTEIN QUANT 4.2 mg/dL (0-0.5)
[2020-08-09 12:00] VITALS: BP_SYST 136
[2020-08-09 16:00] VITALS: BP_SYST 139
[2020-08-09] MEDS: INSULIN REGULAR, HUMAN 100 UNITS/ML, 10 ML VIAL (humuLIN R) SUBCUT PRN (16:11)
[2020-08-09 20:00] VITALS: BP_SYST 144
[2020-08-09] MEDS: ATORVASTATIN 20 MG TABLET NG SCH (22:36)
[2020-08-10] VITALS: BP_SYST 142
[2020-08-10] MEDS: ALUMINUM HYDROXIDE 1920 mg/30 ML UDC PO SCH ×4 (03:56→21:36)
[2020-08-10] MEDS: IPRATROPIUM BROM 0.5 MG/2.5 ML VIAL.NEB (ATROVENT) INH SCH ×6 (04:00→23:00)
[2020-08-10] MEDS: D5W 1,000 ML IV SCH ×2 (06:56→10:43)
[2020-08-10] MEDS: LANSOPRAZOLE 30 MG CAPSULE.DR GT SCH (07:00)
[2020-08-10] MEDS: INSULIN REGULAR, HUMAN 100 UNITS/ML, 10 ML VIAL (humuLIN R) SUBCUT PRN ×3 (07:01→16:31)
[2020-08-10 08:00] VITALS: BP_SYST 131
[2020-08-10] MEDS: MEROPENEM 500 MG in NS 50 ML IV SCH ×2 (09:16→21:36)
[2020-08-10] MEDS: ASPIRIN 81 MG TAB.CHEW NG SCH (09:16)
[2020-08-10] MEDS: ATENOLOL 25 MG TABLET(TENORMIN) NG SCH ×2 (09:17→21:37)
[2020-08-10] MEDS: amLODIPine BESYLATE 5 MG TABLET NG SCH ×2 (09:18→21:38)
[2020-08-10] MEDS: ENOXAPARIN SODIUM 40 MG/0.4 ML SYRINGE SUBCUT SCH (09:19)
[2020-08-10] MEDS: BALSAM PERU/CASTOR OIL 60 GM OINT...G. TP SCH (09:19)
[2020-08-10 11:55] VITALS: BP_SYST 134
[2020-08-10 16:45] VITALS: BP_SYST 134
[2020-08-10 16:53] VITALS: BP_SYST 155
[2020-08-10 20:00] VITALS: BP_SYST 144
[2020-08-10] MEDS: ATORVASTATIN 20 MG TABLET NG SCH (21:37)
[2020-08-11] VITALS: BP_SYST 128
[2020-08-11] MEDS: INSULIN REGULAR, HUMAN 100 UNITS/ML, 10 ML VIAL (humuLIN R) SUBCUT PRN ×4 (01:06→18:12)
[2020-08-11] MEDS: IPRATROPIUM BROM 0.5 MG/2.5 ML VIAL.NEB (ATROVENT) INH SCH ×6 (03:18→23:00)
[2020-08-11] MEDS: D5W 1,000 ML IV SCH ×2 (04:00→09:52)
[2020-08-11] MEDS: ALUMINUM HYDROXIDE 1920 mg/30 ML UDC PO SCH ×4 (04:00→21:00)
[2020-08-11] MEDS: LANSOPRAZOLE 30 MG CAPSULE.DR GT SCH (06:43)
[2020-08-11 08:00] VITALS: BP_SYST 137
[2020-08-11 08:15] LABS: BASOPHILS # (AUTO) 0.1 K/uL (0.0-0.2); BASOPHILS % (AUTO) 0.5 % (0.0-2.0); EOSINOPHILS # (AUTO) 0.3 K/uL (0.0-0.4); EOSINOPHILS % (AUTO) 2.5 % (0.0-4.0); HEMATOCRIT 28.8 % (36-54); HEMOGLOBIN 9.4 g/dL (14.0-18.0); LYMPHOCYTES # (AUTO) 1.8 K/uL (1.0-5.5); LYMPHOCYTES % (AUTO) 13.4 % (20.5-51.5); MEAN CORPUSCULAR HEMOGLOBIN 28 pg (27-31); MEAN CORPUSCULAR HGB CONC 33 % (32-36); MEAN CORPUSCULAR VOLUME 85 fL (79.0-98.0); MONOCYTES # (AUTO) 0.9 K/uL (0.0-1.0); MONOCYTES % (AUTO) 7.1 % (1.7-9.3); NEUTROPHILS % (AUTO) 76.5 % (40.0-70.0); PLATELET COUNT (AUTO) 334 K/uL (130-430); RED BLOOD CELL COUNT(AUTO) 3.41 MIL/uL (4.2-6.2); RED CELL DISTRIBUTION WIDTH 15.7 % (9.0-15.0); WHITE BLOOD COUNT (AUTO) 13.1 K/uL (4.8-10.8)
[2020-08-11 09:16] LABS: ALANINE AMINOTRANSFERASE 18 U/L (12-78); ANION GAP 7 (5-15); ASPARTATE AMINOTRANSFERASE 13 U/L (10-37); CALCIUM 8.1 mg/dL (8.4-11.0); CHLORIDE 105 mmol/L (98-107); CREATININE 1.55 mg/dL (0.55-1.30); GLUCOSE 247 mg/dL (70-99); POTASSIUM 3.9 mmol/L (3.5-5.1); SODIUM SERUM 139 mmol/L (136-145); TOTAL BILIRUBIN 0.2 mg/dL (0.0-1.0); UREA NITROGEN, BLOOD 58 mg/dL (8-21)
[2020-08-11 09:32] LABS: ERYTHROCYTE SEDIMENTATION RATE 92 MM/HR (0-15)
[2020-08-11] MEDS: ASPIRIN 81 MG TAB.CHEW NG SCH (09:46)
[2020-08-11] MEDS: ATENOLOL 25 MG TABLET(TENORMIN) NG SCH ×2 (09:47→21:49)
[2020-08-11] MEDS: amLODIPine BESYLATE 5 MG TABLET NG SCH ×2 (09:47→21:49)
[2020-08-11] MEDS: BALSAM PERU/CASTOR OIL 60 GM OINT...G. TP SCH (09:48)
[2020-08-11] MEDS: ENOXAPARIN SODIUM 40 MG/0.4 ML SYRINGE SUBCUT SCH (09:49)
[2020-08-11] MEDS: MEROPENEM 500 MG in NS 50 ML IV SCH ×2 (10:04→21:37)
[2020-08-11 10:48] LABS: C-REACTIVE PROTEIN QUANT 3.1 mg/dL (0-0.5)
[2020-08-11 13:00] VITALS: BP_SYST 140
[2020-08-11 16:00] VITALS: BP_SYST 137
[2020-08-11] MEDS ORDERED: NA PHOS 15 MM in NS 250 ML IV ONE (17:45)
[2020-08-11 20:00] VITALS: BP_SYST 127
[2020-08-11] MEDS: ATORVASTATIN 20 MG TABLET NG SCH (21:46)
[2020-08-12] VITALS: BP_SYST 122
[2020-08-12] MEDS: INSULIN REGULAR, HUMAN 100 UNITS/ML, 10 ML VIAL (humuLIN R) SUBCUT PRN ×5 (01:37→23:12)
[2020-08-12] MEDS: ALUMINUM HYDROXIDE 1920 mg/30 ML UDC PO SCH ×3 (03:00→21:00)
[2020-08-12] MEDS: IPRATROPIUM BROM 0.5 MG/2.5 ML VIAL.NEB (ATROVENT) INH SCH ×6 (03:00→20:10)
[2020-08-12] MEDS: LANSOPRAZOLE 30 MG CAPSULE.DR GT SCH (07:00)
[2020-08-12 07:47] LABS: BASOPHILS % (AUTO) 0.2 % (0.0-2.0); EOSINOPHILS # (AUTO) 0.3 K/uL (0.0-0.4); EOSINOPHILS % (AUTO) 2.6 % (0.0-4.0); HEMATOCRIT 27.3 % (36-54); HEMOGLOBIN 9.2 g/dL (14.0-18.0); LYMPHOCYTES # (AUTO) 1.4 K/uL (1.0-5.5); LYMPHOCYTES % (AUTO) 13.6 % (20.5-51.5); MEAN CORPUSCULAR HEMOGLOBIN 28 pg (27-31); MEAN CORPUSCULAR HGB CONC 34 % (32-36); MEAN CORPUSCULAR VOLUME 84 fL (79.0-98.0); MONOCYTES % (AUTO) 9.3 % (1.7-9.3); NEUTROPHILS # (AUTO) 7.9 K/uL (1.8-7.7); NEUTROPHILS % (AUTO) 74.3 % (40.0-70.0); PLATELET COUNT (AUTO) 334 K/uL (130-430); RED BLOOD CELL COUNT(AUTO) 3.25 MIL/uL (4.2-6.2); RED CELL DISTRIBUTION WIDTH 16.1 % (9.0-15.0); WHITE BLOOD COUNT (AUTO) 10.6 K/uL (4.8-10.8)
[2020-08-12 08:00] VITALS: BP_SYST 137
[2020-08-12 08:33] LABS: ANION GAP 9 (5-15); CHLORIDE 106 mmol/L (98-107); CREATININE 1.51 mg/dL (0.55-1.30); GLUCOSE 236 mg/dL (70-99); PHOSPHORUS 2.7 mg/dL (2.7-4.5); POTASSIUM 3.9 mmol/L (3.5-5.1); SODIUM SERUM 142 mmol/L (136-145); UREA NITROGEN, BLOOD 55 mg/dL (8-21)
[2020-08-12 08:54] LABS: C-REACTIVE PROTEIN QUANT 4.4 mg/dL (0-0.5)
[2020-08-12] MEDS: ASPIRIN 81 MG TAB.CHEW NG SCH (10:45)
[2020-08-12] MEDS: ATENOLOL 25 MG TABLET(TENORMIN) NG SCH ×2 (10:46→22:19)
[2020-08-12] MEDS: amLODIPine BESYLATE 5 MG TABLET NG SCH ×2 (10:47→22:18)
[2020-08-12] MEDS: ENOXAPARIN SODIUM 40 MG/0.4 ML SYRINGE SUBCUT SCH (10:49)
[2020-08-12] MEDS: BALSAM PERU/CASTOR OIL 60 GM OINT...G. TP SCH (10:59)
[2020-08-12 12:15] VITALS: BP_SYST 152
[2020-08-12 12:23] LABS: ERYTHROCYTE SEDIMENTATION RATE 101 MM/HR (0-15)
[2020-08-12] MEDS ORDERED: LANS30CA56 GT (14:46)
[2020-08-12 16:00] VITALS: BP_SYST 125
[2020-08-12 19:00] VITALS: BP_SYST 155
[2020-08-12 20:00] VITALS: BP_SYST 155
[2020-08-12] MEDS: ATORVASTATIN 20 MG TABLET NG SCH (22:16)
[2020-08-13] VITALS: BP_SYST 135
[2020-08-13] MEDS: IPRATROPIUM BROM 0.5 MG/2.5 ML VIAL.NEB (ATROVENT) INH SCH ×3 (00:05→08:28)
[2020-08-13] MEDS: ALUMINUM HYDROXIDE 1920 mg/30 ML UDC PO SCH ×3 (03:00→14:26)
[2020-08-13] MEDS: INSULIN REGULAR, HUMAN 100 UNITS/ML, 10 ML VIAL (humuLIN R) SUBCUT PRN ×3 (06:09→17:31)
[2020-08-13 08:22] LABS: BASOPHILS # (AUTO) 0.1 K/uL (0.0-0.2); BASOPHILS % (AUTO) 0.8 % (0.0-2.0); EOSINOPHILS # (AUTO) 0.3 K/uL (0.0-0.4); EOSINOPHILS % (AUTO) 2.8 % (0.0-4.0); HEMATOCRIT 28.6 % (36-54); HEMOGLOBIN 9.5 g/dL (14.0-18.0); MEAN CORPUSCULAR HEMOGLOBIN 28 pg (27-31); MEAN CORPUSCULAR HGB CONC 33 % (32-36); MEAN CORPUSCULAR VOLUME 85 fL (79.0-98.0); MONOCYTES # (AUTO) 0.8 K/uL (0.0-1.0); MONOCYTES % (AUTO) 8.2 % (1.7-9.3); NEUTROPHILS # (AUTO) 6.7 K/uL (1.8-7.7); NEUTROPHILS % (AUTO) 68.2 % (40.0-70.0); PLATELET COUNT (AUTO) 355 K/uL (130-430); RED BLOOD CELL COUNT(AUTO) 3.37 MIL/uL (4.2-6.2); RED CELL DISTRIBUTION WIDTH 16.3 % (9.0-15.0); WHITE BLOOD COUNT (AUTO) 9.9 K/uL (4.8-10.8)
[2020-08-13 08:44] LABS: ALANINE AMINOTRANSFERASE 19 U/L (12-78); ALBUMIN 2.2 g/dL (3.4-4.8); ANION GAP 10 (5-15); ASPARTATE AMINOTRANSFERASE 14 U/L (10-37); CHLORIDE 107 mmol/L (98-107); CREATININE 1.55 mg/dL (0.55-1.30); GLUCOSE 261 mg/dL (70-99); POTASSIUM 3.9 mmol/L (3.5-5.1); SODIUM SERUM 143 mmol/L (136-145); TOTAL BILIRUBIN 0.2 mg/dL (0.0-1.0); UREA NITROGEN, BLOOD 55 mg/dL (8-21)
[2020-08-13] MEDS: BALSAM PERU/CASTOR OIL 60 GM OINT...G. TP SCH (09:00)
[2020-08-13 09:38] VITALS: BP_SYST 145
[2020-08-13] MEDS: ENOXAPARIN SODIUM 40 MG/0.4 ML SYRINGE SUBCUT SCH (09:41)
[2020-08-13] MEDS: ASPIRIN 81 MG TAB.CHEW NG SCH (09:41)
[2020-08-13] MEDS: LANSOPRAZOLE 30 MG CAPSULE.DR GT SCH (09:42)
[2020-08-13] MEDS: ATENOLOL 25 MG TABLET(TENORMIN) NG SCH (09:42)
[2020-08-13] MEDS: amLODIPine BESYLATE 5 MG TABLET NG SCH (09:42)
[2020-08-13 11:25] VITALS: BP_SYST 131
[2020-08-13 16:15] VITALS: BP_SYST 124
[2020-08-13 17:11] VITALS: BP_SYST 124
[2020-08-13 20:00] VITALS: BP_SYST 122
[2020-08-27 10:33] LABS: MICROALBUMIN URINE RANDOM 17.9 ug/ml (NOT ESTABLISHED); MICROALBUMIN/CREAT RATIO, UR 78 High MG/G CRE (0.0-30.0)
== END 2020-08-13 21:14 | disposition home health service (06) | DRG 870 ==
LOC: EDBD 17:50 → SED 17:50 → SIC 07-29 00:57 → STU 08-05 21:47 → SMU 08-06 21:01
PROVIDERS: ADMIT Preventive Medicine Preventive Medicine/Occupational Environmental Medicine; ATTEND Preventive Medicine Preventive Medicine/Occupational Environmental Medicine
PROC: 5A09357 Assistance with Respiratory Ventilation, Less than 24 Consecutive Hours, Continuous Positive Airway Pressure (ICD-10-PCS; 2020-07-28)
PROC: 5A1955Z Respiratory Ventilation, Greater than 96 Consecutive Hours (ICD-10-PCS; principal; 2020-07-29)
PROC: 0BH17EZ Insertion of Endotracheal Airway into Trachea, Via Natural or Artificial Opening (ICD-10-PCS; 2020-07-29)
PROC: 30233N1 Transfusion of Nonautologous Red Blood Cells into Peripheral Vein, Percutaneous Approach (ICD-10-PCS; 2020-07-30)
PROC: 02HV33Z Insertion of Infusion Device into Superior Vena Cava, Percutaneous Approach (ICD-10-PCS; 2020-07-30)
PROC: 5A1935Z Respiratory Ventilation, Less than 24 Consecutive Hours (ICD-10-PCS; 2020-08-04)
PROC: 0DH63UZ Insertion of Feeding Device into Stomach, Percutaneous Approach (ICD-10-PCS; 2020-08-09)
PROC: 0DB68ZX Excision of Stomach, Via Natural or Artificial Opening Endoscopic, Diagnostic (ICD-10-PCS; 2020-08-09)
DX: A41.9 Sepsis, unspecified organism (principal); J96.01 Acute respiratory failure with hypoxia; I21.A1 Myocardial infarction type 2; E43 Unspecified severe protein-calorie malnutrition; J15.5 Pneumonia due to Escherichia coli; N17.0 Acute kidney failure with tubular necrosis; E87.2 Acidosis; I13.0 Hypertensive heart and chronic kidney disease with heart failure and stage 1 through stage 4 chronic kidney disease, or unspecified chronic kidney disease; Z16.12 Extended spectrum beta lactamase (ESBL) resistance; Z99.11 Dependence on respirator [ventilator] status; I42.9 Cardiomyopathy, unspecified; E87.0 Hyperosmolality and hypernatremia; N39.0 Urinary tract infection, site not specified; D64.9 Anemia, unspecified; E83.39 Other disorders of phosphorus metabolism; E83.41 Hypermagnesemia; N35.919 Unspecified urethral stricture, male, unspecified site; Z20.828 Contact with and (suspected) exposure to other viral communicable diseases; E87.6 Hypokalemia; E83.51 Hypocalcemia; E11.22 Type 2 diabetes mellitus with diabetic chronic kidney disease; E11.65 Type 2 diabetes mellitus with hyperglycemia; E78.5 Hyperlipidemia, unspecified; R13.12 Dysphagia, oropharyngeal phase; E88.09 Other disorders of plasma-protein metabolism, not elsewhere classified; I50.9 Heart failure, unspecified; K29.70 Gastritis, unspecified, without bleeding; N18.9 Chronic kidney disease, unspecified; R62.7 Adult failure to thrive; Z85.46 Personal history of malignant neoplasm of prostate; Z86.19 Personal history of other infectious and parasitic diseases; Z68.24 Body mass index [BMI] 24.0-24.9, adult
CPT/HCPCS: 36415; 36600; 43239; 43246; 71045; 76770; 80048; 80053; 81000-TC; 82043; 82570; 82803-TC; 82962; 83605; 83735-TC; 83874; 83880; 83935-TC; 84100-TC; 84132-TC; 84302-TC; 84484; 84560; 85025; 85379; 85610-TC; 85651-TC; 85730-TC; 86140; 86886; 86900; 86901; 86920; 87040-TC; 87070-TC; 87081; 87086; 87205-TC; 88305; 88312; 88313; 92610-GN; 93005; 93306; 93970; 94002; 94003; 94640; 94660; 94760; 96365; 96366; 97110-GP; 97112-GP; 97116-GP; 97530-GP; 99285; C1751; G0378; J0456; J0690; J0696; J1644; J1650; J1815; J1940; J2060; J2185; J2250; J2543; J2704; J3010; J3475; J3480; J3490; J7050; J7060; J7120; J7613; P9021; U0003